=== PATIENT | female | born 1965 | race Caucasian/White ===

== ENCOUNTER 2022-03-27 07:25 | Outpatient (CLI) | payer MEDICAID, SELFPAY ==
--- NOTE | 2022-03-27 | US_ITS ---
WS: [id number] Complete ABDOMINAL ULTRASOUND HISTORY: ABD PAIN COMPARISON: None available. Liver: 17.2 cm in length. Liver is top normal size. There is a complex cystic mass with a few septati ons and lobulated margins in the RIGHT lobe of the liver measuring 5.1 x 5.9 x 4.7 cm. No increased v ascularity. There is through transmission. Otherwise liver is heterogeneous. Portal Vein: Normal hepatopetal flow with monophasic waveform. Gallbladder: Normally distended with no gallstones, wall thickening or pericholecystic fluid. Gallbladder wall thickness: 0.4 cm. Pancreas: Normal size and echogenicity. CBD: 0.6 cm. Right kidney: 11.8 cm x 6.2 cm x 5.1 cm. No mass, cortical thickening or hydronephrosis. Left kidney: 12.5 cm x 6.8 cm x 4.6 cm. No mass, cortical thickening or hydronephrosis. Spleen: Normal size and echogenicity. Abdominal aorta and IVC are within normal limits. No ascites. US/US abdomen complete* [id number] IMPRESSION: 1. Normal gallbladder. 2. Complex cystic mass in the RIGHT lobe of the liver measures 5.1 x 5.9 x 4.7 cm. Recommend further evaluation due to the size and mixed density. Recommend follow-up dual phase CT with contrast or MRI with and without contrast of the l iver.
--- NOTE | 2022-03-27 | US_ITS ---
WS: [id number] ULTRASOUND SOFT TISSUES LEFT abdominal wall. HISTORY: LEFT BACK LUMP COMPARISON: None available. TECHNIQUE: 2-D and color Doppler imaging is submitted. No abnormality is noted within the LEFT abdominal wall as directed by the patient. No soft tissue mas s identified. US/US soft tissue/extremity [id number] IMPRESSION: Negative soft tissue ultrasound LEFT abdominal wall as directed by the patient.
== END 2022-03-27 07:26 | disposition home or self-care (01) ==
LOC: RAD 07:31
PROVIDERS: PCP Family Medicine; Visit Provider Family Medicine
DX: R10.9 Unspecified abdominal pain (principal); R16.0 Hepatomegaly, not elsewhere classified
CPT/HCPCS: 76700; 76882

== ENCOUNTER 2022-04-10 07:40 | Outpatient (CLI) | payer MEDICAID, SELFPAY ==
[2022-04-10] MEDS: iohexol 350 mg/mL 100 mL Btl IV (08:33)
[2022-04-10] MEDS: iohexol 350 mg/mL 100 mL Btl PO (08:34)
--- NOTE | 2022-04-10 12:30 | CT_ITS ---
WS: [id number] CT ABDOMEN AND PELVIS WITH CONTRAST HISTORY: abdominal pain, follow-up liver mass and constipation. TECHNIQUE: Imaging performed of the abdomen and pelvis with IV contrast. Dual phase imaging of the a ulises. Coronal and sagittal reformats are submitted. All CT scans at [facility] use at least one of these dose optimization techniques: automated exposure control; mA and/or kV adjustment per p atient size (includes targeted exams where dose is matched to clinical indication); or iterative rod nstruction. IV CONTRAST: Omnipaque 350; 95 mL IV. Oral contrast: Yes. DLP: 2460.83 mGy.cm COMPARISON: Prior ultrasound 03/27/2022 Lower thorax: Mild interstitial prominence at the lung bases. Probably related to smoking history. No mass. Heart is normal size. No hiatal hernia. Liver/biliary system: Liver is normal size. The lobulated cystic mass in the RIGHT lobe described by ultrasound recently is identified. Lobulated cystic mass measures 6.7 x 6.5 cm and extends over a oscar gth of 5.4 cm. There is displacement of the adjacent liver parenchyma and vascularity within the live r. Cyst extends to the RIGHT portal vein but does not invade. Hounsfield units are low. There are a f ew very small superficial septations. No nodular component or papillary projection and no enhancement . No distal bile duct dilatation. Gallbladder: Normal. No gallstones or wall thickening. No pericholecystic fluid. Pancreas: Normal size pancreas and pancreatic duct. No adjacent inflammation. Spleen: Normal size spleen. No mass or infarct. Adrenal glands: Normal. Right kidney: Normal. Left kidney: Normal. Aorta: Normal. Lymphadenopathy: None. Free fluid: None. GI tract: No GI tract obstruction. Mild sigmoid wall thickening and scattered diverticula. Abdominal wall: Unremarkable abdominal wall. No hernia. Pelvis: No free fluid or adenopathy. Prior hysterectomy. Bones: Degenerative disc disease at L5-S1. CT/CT abdomen pelvis w con* [id number] IMPRESSION: 1. Large lobulated cystic mass in the RIGHT lobe of the liver with displacemen t of the adjacent vascularity. No solid component. Cystic mass measures 6.7 x 6 .5 x 5.4 cm. Favor this is probably a benign cyst but due to its large size and no additional cysts recommend continued surveillance. Differential would inclu de cystadenoma and hydatid cyst. Recommend follow-up hepatic CT with arterial a nd portal venous phase imaging or follow-up MRI liver with and without contrast in 3 months. 2. No ascites and no adenopathy. 3. Mild distal colitis with diverticular disease. No acute diverticulitis.
== END 2022-04-10 07:41 | disposition home or self-care (01) ==
LOC: RAD 07:42
PROVIDERS: PCP Family Medicine; Visit Provider Surgery
DX: K52.9 Noninfective gastroenteritis and colitis, unspecified (principal); K76.89 Other specified diseases of liver
CPT/HCPCS: 74177

== ENCOUNTER 2022-04-29 09:49 | Day surgery (SDC) | payer MEDICAID, SELFPAY ==
[2022-04-28 12:25] VITALS: BMI 30.4
[2022-04-29 10:26] VITALS: BP 129/79; PULSE 76; RESP 16; TEMP 36.7; O2SAT 96
[2022-04-29] MEDS: sodium chloride 0.9% 1,000 ML 30 ML IV (10:30)
--- NOTE | 2022-04-29 10:50 | P.HP_ITS ---
Same Day Surgery H&P Indication for Procedure/HPI DATE OF PROCEDURE: April 29, 2022 CHIEF COMPLAINT/INDICATIONFOR SURGICAL PROCEDURE: History of diverticulitis PREOP DIAGNOSIS: History of diverticulitis PLANNED PROCEDURE: Operation Date: 04/29/22 11:30 Proposed Procedures p Colonoscopy 23813,Z87.19(Not Applicable) - Paul Samano MD 02/11/2022 This is a 56 years old female patient with history of episode of sigmoid colon diverticulitis where she did have a CT scan obtained at outside facility back in April 2021 at that time patient was told that she did have an abscess and she did spend 4 days in the hospital and IV antibiotics.? Report of the CT was obtained from the outside facility back in July 14, 2021 which did show cystic mass in the central liver measures up to 6.5 cm x 5 cm.? Appears that this mass was present back in August 31, 2014 measured only 2.1 cm at that time.? It has lobulated borders enhancement is seen in the surrounding vessels, best appreciated on the portal venous images.? There is no apparent enhancement of the cystic mass or the wall surrounding. There is no apparent solid hepatic mass or biliary dilation. Fortunately I do not have any other records coinciding with the patient's visit back in May 04 showing the diverticulitis so patient has been complaining of left-sided chest wall. In fact I am more concerned about the hepatic mass.? There is no evidence of bleeding per rectum or history of colon cancer. Interim history 04/29/2022 Patient comes today for colonoscopy after she did undergo a CT of the abdomen pelvis that did show as below. 1.? Large lobulated cystic mass in the RIGHT lobe of the liver with displacement of the adjacent vascularity. No solid component. Cystic mass measures 6.7 x 6.5 x 5.4 cm. Favor this is probably a benign cyst but due to its large size and no additional cysts recommend continued surveillance. Differential would include cystadenoma and hydatid cyst. Recommend follow-up hepatic CT with arterial and portal venous phase imaging or follow-up MRI liver with and without contrast in 3 months. 2.? No ascites and no adenopathy. 3.? Mild distal colitis with diverticular disease. No acute diverticulitis. Patient is referred to hepatobiliary surgery for further evaluation. ROS All systems have been reviewed negative except as for the above or per problem list. Medications/Allergies* Home Medications Medication Instructions Recorded Confirmed Type potassium 99 mg tablet 198 mg PO DAILY 02/11/22 04/28/22 History magnesium 250 mg tablet 500 mg PO DAILY 04/28/22 04/28/22 History maltodextrin 1 ea PO DAILY 04/28/22 04/28/22 History Allergies/Adverse Reactions Allergy/AdvReac Type Severity Reaction Status Date / Time No Known Allergies Allergy Verified 02/13/22 17:26 Current Medications: Generic Name Dose Route Start Last Admin Trade Name Freq PRN Reason Stop Dose Admin Sodium Chloride 1,000 mls @ 30 mls/hr 04/28/22 12:45 04/29/22 10:30 Sodium Chloride 0.9% IV 30 mls/hr .Q24H LORI Administration Pertinent History/Comorbid Conditions* Family History (Updated 02/11/22 @ 08:21 by Zulay Pinto MA) Diabetes Cancer Social History Smoking and tobacco status: current every day smoker Pertinent Exam Findings alert, oriented x 3, regular rate & rhythm and procedure specific exam findings (Abdominal exam nontender nondistended soft) Recommendations Surgery/Procedure today (Colonoscopy with possible biopsy) Coding Level of Care Code Acute 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
--- NOTE | 2022-04-29 11:43 | ANES.PREANE2 ---
Pre-Anesthetic Assessment Height/Weight: Height 1.75 m Weight 93.44 kg Temp Pulse Resp BP Pulse Ox O2 Del Method 98.1 F 76 16 129/79 96 04/29/22 10:26 04/29/22 10:26 04/29/22 10:26 04/29/22 10:26 04/29/22 10:26 04/29/22 10:26 Preop Diagnosis: History of diverticulitis Operation Date: 04/29/22 11:30 Proposed Procedures p Colonoscopy 57499,Z87.19(Not Applicable) - Paul Samano MD Familial anesthetic complications: None Was Beta Stefany taken within 24 hours: N/A Was Clonidine taken within 24 hours: N/A Last intake: Intake Last Liquid Date 04/28/22 Last Liquid Time 23:15 Last Solid Date 04/28/22 Last Solid Time 07:45 Social Tobacco (Marijuana daily) and No alcohol 0.5 pack(s) per day Exam alert, oriented x 3, clear to auscultation bilaterally and regular rate & rhythm Airway Submandibular: within normal limits Cervical ROM: within normal limits Mallampati: Class III Dentition: false (False on top, no teeth on bottom) History/ROS No significant history except as noted and No significant complaints Pulmonary None reported CV/HEM None reported None reported Hepatic None reported Cyst on liver GI None reported Metabolic None reported Musc/skel None reported Neuropsych None reported Anesthetic Plan ASA status: 2 Anesthesia: Anesthesia Evaluation, General and MAC Risk of > 500 ml blood loss (7ml/kg in children): No Medications/Allergies Home Medications Medication Instructions Recorded Confirmed Last Taken Type potassium 99 mg tablet 198 mg PO DAILY 02/11/22 04/28/22 04/27/22 History magnesium 250 mg tablet 500 mg PO DAILY 04/28/22 04/28/22 04/27/22 History maltodextrin 1 ea PO DAILY 04/28/22 04/28/22 04/27/22 History Allergies Allergy/AdvReac Type Severity Reaction Status Date / Time No Known Allergies Allergy Verified 02/13/22 17:26 Current Medications Generic Name Dose Route Start Last Admin Trade Name Freq PRN Reason Stop Dose Admin Sodium Chloride 1,000 mls @ 30 mls/hr 04/28/22 12:45 04/29/22 10:30 Sodium Chloride 0.9% IV 30 mls/hr .Q24H LORI Administration PFSH Anesthesia Family History Other Cancer Diabetes Social History Smoking and tobacco status: current every day smoker Data Anesthesia Cardiac Studies: No Data to Display
[2022-04-29 13:26] VITALS: BP 109/77; PULSE 95; RESP 20; TEMP 36.6; O2SAT 93
[2022-04-29 13:36] VITALS: BP 113/82; PULSE 77; RESP 16; O2SAT 98
[2022-04-29 13:50] VITALS: BP 115/87; PULSE 78; RESP 16; O2SAT 97
--- NOTE | 2022-04-29 14:44 | ANE.PACU2 ---
Inpatient post-anesthesia follow up: Airway intact: Yes Vital signs: Temperature 97.8 F Pulse Rate 78 Respiratory Rate 16 Blood Pressure 115/87 Pulse Oximetry 97 Oxygen Delivery Me thod Room Air Oxygen Flow Rate 3 Fraction of Inspir ed Oxygen Hydration adequate: Yes Nausea and vomiting: No Pain level: 1 Mental status: Baseline
== END 2022-04-29 14:00 | disposition home or self-care (01) ==
PROVIDERS: PCP Family Medicine; Visit Provider Surgery
PROC: 0DJD8ZZ Inspection of Lower Intestinal Tract, Via Natural or Artificial Opening Endoscopic (ICD-10-PCS; CPT 45330; principal; 2022-04-29 11:30)
DX: Z87.19 Personal history of other diseases of the digestive system (principal); K57.30 Diverticulosis of large intestine without perforation or abscess without bleeding; F17.210 Nicotine dependence, cigarettes, uncomplicated
CPT/HCPCS: 43235; J2704; J7030

== ENCOUNTER 2022-07-09 08:03 | Outpatient (CLI) | payer MEDICAID, SELFPAY ==
--- NOTE | 2022-07-09 | MR_ITS ---
WS: [id number] MRI PELVIS with and without CONTRAST. COMPARISON: CT 04/10/2022 Multiplanar, multisequence imaging is performed with and without contrast. MultiHance 20 mL IV. History: Sigmoid narrowing. Unable to perform colonoscopy. Constipation. There is a long segment stricture involving approximately 10 cm of the sigmoid colon. There is modera te narrowing of the lumen with numerous diverticula. There is circumferential wall thickening of the sigmoid. There is mild asymmetry of the wall thickening along the more proximal stricture. The enhanc ement is similar to the remaining soft tissues throughout the stricture. No adjacent inflammation. No diverticular abscess. No adenopathy is identified. There is no ascites. Patient is status post hysterectomy. The visualized bladder is only partially distended and negative. No bone lesions. MR/MR pelvis wo/w con [id number] IMPRESSION: 1. Long segment stricture sigmoid colon extending over a length of at least 10 cm. Consistent with a diverticular stricture. 2. There is mild asymmetric enhancement and thickening involving the proximal stricture. The enhancement is similar to the remaining mucosa and submucosa krystin ng the stricture. No discrete mass identified. MRI is not sensitive for detecti ng small neoplastic lesions on a background of diverticular disease. 3. No adenopathy or ascites.
[2022-07-09] MEDS: gadobenate dimeglumine 20 mL vial IV (09:30)
== END 2022-07-09 08:04 | disposition home or self-care (01) ==
LOC: RAD 08:04
PROVIDERS: PCP Family Medicine; Visit Provider Family Medicine
DX: K56.609 Unspecified intestinal obstruction, unspecified as to partial versus complete obstruction (principal)
CPT/HCPCS: 72197; A9577

== ENCOUNTER 2023-01-11 14:04 | Outpatient (CLI) | payer MEDICAID, SELFPAY ==
--- NOTE | 2023-01-11 14:26 | XRR_ITS ---
PROCEDURE INFORMATION: Exam: XR Thoracic Spine Exam date and time: 01/11/2023 2:42 PM Age: 57 years old Clinical indication: Pain in thoracic spine; Additional info: Lbp w/numbness in R foot unable to dorsiflex the R foot TECHNIQUE: Imaging protocol: Radiologic exam of the thoracic spine. Views: 3 views. COMPARISON: CT abdomen pelvis w con* [id number] 04/10/2022 9:03 AM FINDINGS: Bones/joints: No acute fracture. Normal alignment. Soft tissues: Unremarkable. XR/XR thoracic spine 3V* [id number] IMPRESSION: No acute findings.
--- NOTE | 2023-01-11 14:26 | XRR_ITS ---
PROCEDURE INFORMATION: Exam: XR Lumbosacral Spine Exam date and time: 01/11/2023 2:42 PM Age: 57 years old Clinical indication: Low back pain; Additional info: Lbp w/numbness in R foot unable to dorsiflex the R foot TECHNIQUE: Imaging protocol: Radiologic exam of the lumbosacral spine. Views: 2 or 3 views. COMPARISON: MR pelvis wo/w con [id number] 07/09/2022 8:45 AM FINDINGS: Bones/joints: No acute fracture. Normal alignment. Soft tissues: Unremarkable. XR/XR lumbar spine 2-3V* [id number] IMPRESSION: No acute findings.
== END 2023-01-11 14:05 | disposition home or self-care (01) ==
PROVIDERS: PCP Family Medicine; Visit Provider Family Medicine
DX: M54.6 Pain in thoracic spine (principal); M54.50 Low back pain, unspecified; R20.0 Anesthesia of skin
CPT/HCPCS: 72072; 72100

== ENCOUNTER 2023-02-05 15:13 | Outpatient (CLI) | payer MEDICAID, SELFPAY ==
--- NOTE | 2023-02-05 15:19 | MR_ITS ---
WS: [id number] MRI LUMBAR SPINE NONCONTRAST HISTORY: LOW BACK PAIN COMPARISON: None available. TECHNIQUE: Sagittal and axial multisequence imaging is submitted. Marked increase in thoracic kyphosis. Disc spaces throughout the thoracic spine are desiccated and na rrowed. Mild curvature lumbar spine. Disc spaces are narrowed and desiccated, most significant at L5-S1. No f racture or marrow edema. Mild curvature lumbar spine. Conus terminates normally at L1-2 disc level. L1-L2: Mild facet arthritis. No stenosis. L2-L3: Mild annular disc bulging with mild ligamentum flavum and facet arthritis. No stenosis. L3-L4: Mild annular disc bulging with moderate ligamentum flavum and facet arthritis. Mild disc encro achment upon the traversing L4 nerve roots. No displacement of the nerve roots Very mild LEFT foraminal narrowing. L4-L5: Mild annular disc bulging with a moderate RIGHT paracentral disc protrusion. Disc protrusion e xtends into the subarticular recess and displaces the traversing RIGHT L5 nerve root posteriorly. Mas s effect upon the thecal sac. Moderate ligamentum flavum and foraminal stenosis. Additional encroachm ent upon the LEFT subarticular recess through the disc bulging and mild foraminal stenosis. Moderate central and bilateral subarticular recess stenosis. L5-S1: Marked diffuse annular disc bulging. Central and RIGHT foraminal disc protrusions. There is di sc contacting the S1 nerve roots in the subarticular recesses with narrowing of the central canal. Mi ld bilateral foraminal stenosis. Mild central stenosis. IMPRESSION: 1. L4-5: Moderate RIGHT paracentral disc protrusion extending into the subarticular recess and displa cing the traversing RIGHT L5 nerve root. 2. L4-5: Moderate central and bilateral subarticular recess stenosis due to combination of disc bulgi ng, protrusion and facet and ligamentum flavum hypertrophy. 3. L5-S1: Small central and RIGHT foraminal disc protrusions with contact on the traversing S1 nerve roots. Mild central and bilateral foraminal stenosis. 4. Very mild disc encroachment upon the traversing L4 nerve roots.
== END 2023-02-05 15:14 | disposition home or self-care (01) ==
PROVIDERS: PCP Family Medicine; Visit Provider Family Medicine
DX: M51.26 Other intervertebral disc displacement, lumbar region (principal); M51.27 Other intervertebral disc displacement, lumbosacral region
CPT/HCPCS: 72148

== ENCOUNTER 2024-11-28 11:28 | Outpatient (CLI) | payer MEDICAID, SELFPAY ==
--- NOTE | 2024-11-28 11:39 | XR_ITS ---
WS: [id number] Left hip, AP and frog-leg views, 11/28/2024 Clinical Data: L HIP PAIN Comparison: None. Findings: No fractures or dislocations are seen. The left hip shows no erosion, sclerosis, narrowing, cyst formation or fragmentation of the left femoral head. There is an acetabular lip. The soft tissues are not remarkable. The adjacent pelvis is normal. XR/XR hip LT 2-3V wo/w pel* [id number] Impression: Osteoarthritis of the left hip.
== END 2024-11-28 11:29 | disposition home or self-care (01) ==
LOC: RAD 11:36
PROVIDERS: PCP Family Medicine; Visit Provider Family Medicine
DX: M16.12 Unilateral primary osteoarthritis, left hip (principal); R93.7 Abnormal findings on diagnostic imaging of other parts of musculoskeletal system
CPT/HCPCS: 73502